=== PATIENT | male | born 1960 | race African-American/Black ===

== ENCOUNTER 2022-08-04 07:59 | Outpatient (CLI) | payer BC | END 2022-08-04 08:00 | disposition home or self-care (01) | LOC: CSHCT 07:59 | PROVIDERS: ATTEND Student in an Organized Health Care Education/Training Program | DX: Z12.2 Encounter for screening for malignant neoplasm of respiratory organs (principal); Z87.891 Personal history of nicotine dependence | CPT/HCPCS: 71271 ==